=== PATIENT | female | born 1980 | race Caucasian/White ===

== ENCOUNTER → 2020-01-10 13:00 | Outpatient (BNVA) | payer MEDICAID, SELFPAY | PROVIDERS: Family Provider Counselor Professional; PCP Family Medicine; Visit Provider Counselor Professional | DX: F43.10 Post-traumatic stress disorder, unspecified (principal); F20.9 Schizophrenia, unspecified | CPT/HCPCS: 90834 ==

== ENCOUNTER → 2020-01-18 14:18 | Outpatient (BNVA) | payer MEDICAID, SELFPAY | PROVIDERS: Family Provider Counselor Professional; PCP Family Medicine; Visit Provider Counselor Professional | DX: F43.12 Post-traumatic stress disorder, chronic (principal); F20.9 Schizophrenia, unspecified | CPT/HCPCS: 90832 ==

== ENCOUNTER → 2020-03-20 16:00 | Outpatient (BNVA) | payer MEDICAID, SELFPAY | PROVIDERS: Family Provider Counselor Professional; PCP Family Medicine; Visit Provider Counselor Professional | DX: F43.10 Post-traumatic stress disorder, unspecified (principal); F20.9 Schizophrenia, unspecified | CPT/HCPCS: 90832 ==

== ENCOUNTER → 2020-04-01 16:00 | Outpatient (BNVA) | payer MEDICAID, SELFPAY | PROVIDERS: Family Provider Counselor Professional; PCP Family Medicine; Visit Provider Counselor Professional | DX: F43.10 Post-traumatic stress disorder, unspecified (principal); F20.9 Schizophrenia, unspecified | CPT/HCPCS: 90832 ==

== ENCOUNTER → 2020-05-09 11:00 | Outpatient (BNVA) | payer MEDICAID, SELFPAY | PROVIDERS: Family Provider Counselor Professional; Visit Provider Counselor Professional | DX: F43.10 Post-traumatic stress disorder, unspecified (principal); F20.9 Schizophrenia, unspecified | CPT/HCPCS: 90832 ==

== ENCOUNTER → 2020-05-30 15:00 | Outpatient (BNVA) | payer MEDICAID, SELFPAY | PROVIDERS: Family Provider Counselor Professional; Visit Provider Counselor Professional | DX: F20.9 Schizophrenia, unspecified (principal) | CPT/HCPCS: 90832 ==

== ENCOUNTER → 2020-06-13 15:05 | Outpatient (BNVA) | payer MEDICAID, SELFPAY | PROVIDERS: Family Provider Counselor Professional; Visit Provider Counselor Professional | DX: F20.9 Schizophrenia, unspecified (principal) | CPT/HCPCS: 90832 ==

== ENCOUNTER → 2020-07-14 15:00 | Outpatient (BNVA) | payer MEDICAID, SELFPAY | PROVIDERS: Family Provider Counselor Professional; Visit Provider Counselor Professional | DX: F20.9 Schizophrenia, unspecified (principal) | CPT/HCPCS: 90832 ==

== ENCOUNTER → 2020-07-28 15:04 | Outpatient (BNVA) | payer MEDICAID, SELFPAY | PROVIDERS: Family Provider Counselor Professional; Visit Provider Counselor Professional | DX: F20.9 Schizophrenia, unspecified (principal) | CPT/HCPCS: 90832 ==

== ENCOUNTER → 2020-08-13 14:05 | Outpatient (BNVA) | payer MEDICAID, SELFPAY | PROVIDERS: Family Provider Counselor Professional; Visit Provider Counselor Professional | DX: F20.9 Schizophrenia, unspecified (principal) | CPT/HCPCS: 90832 ==

== ENCOUNTER → 2021-02-17 16:25 | Outpatient (BNVA) | payer MEDICAID, SELFPAY | PROVIDERS: Family Provider Counselor Professional; Visit Provider Nurse Practitioner Family | DX: Z03.89 Encounter for observation for other suspected diseases and conditions ruled out (principal); R00.0 Tachycardia, unspecified; F20.9 Schizophrenia, unspecified; Z79.899 Other long term (current) drug therapy | CPT/HCPCS: 80053; 80061; 82306; 82607; 82746; 83036; 83540; 83735; 84443; 85025 ==

== ENCOUNTER → 2021-02-26 14:11 | Outpatient (BNVA) | payer MEDICAID, SELFPAY | PROVIDERS: Family Provider Counselor Professional; PCP Family Medicine; Visit Provider Counselor Professional | DX: F20.9 Schizophrenia, unspecified (principal) | CPT/HCPCS: 90832 ==

== ENCOUNTER → 2021-03-12 14:16 | Outpatient (BNVA) | payer MEDICAID, SELFPAY | PROVIDERS: Family Provider Counselor Professional; PCP Family Medicine; Visit Provider Counselor Professional | DX: F20.9 Schizophrenia, unspecified (principal) | CPT/HCPCS: 90832 ==

== ENCOUNTER → 2021-04-08 14:07 | Outpatient (BNVA) | payer MEDICAID, SELFPAY | PROVIDERS: Family Provider Counselor Professional; PCP Family Medicine; Visit Provider Counselor Professional | DX: F20.9 Schizophrenia, unspecified (principal) | CPT/HCPCS: 90832 ==

== ENCOUNTER → 2021-04-29 14:04 | Outpatient (BNVA) | payer MEDICAID, SELFPAY | PROVIDERS: Family Provider Counselor Professional; PCP Family Medicine; Visit Provider Counselor Professional | DX: F20.9 Schizophrenia, unspecified (principal) | CPT/HCPCS: 90832 ==

== ENCOUNTER 2025-09-04 11:30 | Oncology outpatient (recurring) (ONCR) | payer MEDICAID, SELFPAY ==
[2025-08-19 13:26] LABS: Hematocrit 28.8 % (36-47); Hemoglobin 8.10 g/dL (11.27-16.99); Mean Corpuscular HGB Conc 28.1 g/dL (30-55); Mean Corpuscular Hemoglobin 19.3 pg (27-33); Mean Corpuscular Volume 68.6 fl (85-98); Nucleated Red Blood Cells % 0 %; Platelet Count 189 10^3/cmm (157-399); Red Blood Count 4.20 10^6/uL (3.85-5.65); White Blood Count 6.73 10^3/uL (3.29-11.43)
[2025-08-19 13:47] LABS: Albumin Level 4.0 g/dL (3.5-5.2); Alkaline Phosphatase 95 U/L (35-105); Anion Gap 16.7 (5-19); Aspartate Amino Transferase 86 U/L (0-32); Blood Urea Nitrogen 13 mg/dL (6-20); Calcium 9.0 mg/dL (8.5-10.5); Carbon Dioxide 25 mmol/L (22-29); Chloride 90 mmol/L (98-107); Ferritin 8 ng/mL (15-150); Globulin 3.8 g/dL (1.3-4.6); Glucose 404 mg/dL (65-115); Iron 22 ug/dL (37-145); Osmolality Calculated 281 mOsm/kg (285-295); Potassium 4.7 mmol/L (3.5-5.1); Sodium 127 mmol/L (136-145); Total Iron Binding Capacity 529 mcg/dl; Total Protein 7.8 g/dL (6.6-8.7); Unsaturated Iron Binding 507 ug/dL (112-347)
[2025-08-19 13:57] LABS: Alanine Aminotransferase 46 U/L (0-33)
[2025-08-19 14:02] LABS: Vitamin B12 1550 pg/mL (232-1245)
[2025-08-30 09:51] VITALS: BP 136/88; PULSE 102; RESP 16; TEMP 36.4; O2SAT 98
[2025-08-30] MEDS: iron sucrose 200 MG/100 ML BAG IV (10:14)
[2025-09-02 13:16] VITALS: BP 97/64; PULSE 97; RESP 16; TEMP 36.4; O2SAT 91
[2025-09-02] MEDS: iron sucrose 200 MG/100 ML BAG IV (13:22)
[2025-09-02 13:59] VITALS: BP 98/64; PULSE 96; RESP 16; TEMP 36.8; O2SAT 96
[2025-09-04] MEDS: iron sucrose 200 MG/100 ML BAG IV (11:34)
[2025-09-04 12:09] VITALS: BP 100/69; PULSE 92; RESP 16; TEMP 36.4; O2SAT 96
== END 2025-09-08 23:59 | disposition home or self-care (01) ==
PROVIDERS: Family Provider Counselor Professional; Visit Provider Internal Medicine Medical Oncology
DX: D50.9 Iron deficiency anemia, unspecified; Z79.899 Other long term (current) drug therapy; Z53.9 Procedure and treatment not carried out, unspecified reason
CPT/HCPCS: 36415; 80053; 82607; 82728; 82746; 83010; 83540; 83550; 85025; 96365; 99204; J1756

== ENCOUNTER 2025-09-13 10:00 | Oncology outpatient (recurring) (ONCR) | payer MEDICAID, SELFPAY ==
[2025-09-11 13:19] VITALS: BP 135/89; PULSE 100; RESP 16; TEMP 36.9; O2SAT 99
[2025-09-11] MEDS: iron sucrose 200 MG/100 ML BAG IV (13:26)
[2025-09-13 09:55] VITALS: BP 107/73; PULSE 84; TEMP 35.9; O2SAT 96
[2025-09-13] MEDS: iron sucrose 200 MG/100 ML BAG IV (10:12)
[2025-09-13 10:46] VITALS: BP 96/65; PULSE 88; RESP 16; TEMP 36.4; O2SAT 95
== END 2025-10-09 23:59 | disposition home or self-care (01) ==
PROVIDERS: PCP Counselor Professional; Visit Provider Internal Medicine Medical Oncology
DX: D50.9 Iron deficiency anemia, unspecified; Z79.899 Other long term (current) drug therapy; Z53.9 Procedure and treatment not carried out, unspecified reason
CPT/HCPCS: 96365; J1756